=== PATIENT | female | born 1995 | race Caucasian/White ===

== ENCOUNTER 2019-04-29 16:01 | Emergency (ER) | payer MEDICAID, OTHER ==
--- NOTE | 2019-04-29 16:06 | NUR ---
PT CAME INTO THE ED C/O A "BUG BITE" WHICH HAS GOTTEN BIGGER FOR THE PAST 2 DAYS. PT AAOX4, VSS, BREATHING EVEN AND UNLABORED W/ NAD. AWAITING FOR MD VARGAS
[2019-04-29 16:26] VITALS: BP 128/84
--- NOTE | 2019-04-29 16:26 | NUR ---
Patient discharged to home in stable condition. Written and verbal after care instructions given. Patient verbalizes understanding of instruction.
== END 2019-04-29 16:27 | disposition home or self-care (01) ==
LOC: ER 16:01
DX: S80.861A Insect bite (nonvenomous), right lower leg, initial encounter (principal); L08.9 Local infection of the skin and subcutaneous tissue, unspecified; W57.XXXA Bitten or stung by nonvenomous insect and other nonvenomous arthropods, initial encounter; Y93.89 Activity, other specified; Y92.89 Other specified places as the place of occurrence of the external cause; Y99.8 Other external cause status

== ENCOUNTER 2019-08-22 15:41 | Emergency (ER) | payer OTHER ==
[~2019-08-22] VITALS: Ht 172.7 cm; Wt 59.0 kg
[2019-08-22 16:06] LABS: BILIRUBIN,URINE Negative (NEGATIVE); COLOR,URINE Light yellow (YELLOW); KETONES,URINE Negative (NEGATIVE); LEUKOCYTE ESTERASE ,URINE Large (NEGATIVE); NITRITE, URINE Negative (NEGATIVE); PROTEIN,URINE Negative (NEGATIVE); UGLUCOSE Negative (NEGATIVE); UROBILINOGEN,URINE 0.2 EU/dL (0.2)
[2019-08-22 16:08] LABS: APPEARANCE,URINE SLIGHTLY CLOUDY (CLEAR)
[2019-08-22 16:09] LABS: BACTERIA,URINE Few /HPF (None Seen); BLOOD, URINE TRACE Ery/uL (NEGATIVE); SQUAMOUS EPITHELIAL CELL,UR Many /HPF (None Seen); WBC,URINE 51-80 /HPF (0-3)
[2019-08-22 16:36] VITALS: BP 143/88
--- NOTE | 2019-08-22 16:36 | NUR ---
Patient discharged to home in stable condition. Written and verbal after care instructions given. Patient verbalizes understanding of instruction.
== END 2019-08-22 16:36 | disposition home or self-care (01) ==
LOC: ER 15:45
DX: N39.0 Urinary tract infection, site not specified (principal)
CPT/HCPCS: 81000-TC; 84703-TC; 87086-TC; 87186-TC

== ENCOUNTER 2021-11-23 14:55 | Emergency (ER) | payer OTHER ==
[~2021-11-23] VITALS: Ht 172.7 cm; Wt 79.4 kg
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
--- NOTE | 2021-11-23 15:05 | NUR ---
SEEN AND EXAMINED BY .
--- NOTE | 2021-11-23 15:19 | NUR ---
POWDER OPERATOR AT BEDSIDE FOR XRAY.
[2021-11-23] MEDS ORDERED: HYDROCODONE/APAP 5/325MG TABLET ONE (15:27)
[2021-11-23] MEDS ORDERED: TDAP [DIPH/PERTUSSIS/TET] 0.5 ML VIAL IM ONE ×2 (15:28→15:30)
[2021-11-23] MEDS ORDERED: HYDROCODONE/APAP 5/325MG TABLET PO ONE (15:30)
[2021-11-23] MEDS ORDERED: LIDOCAINE HCL/PF 1% 30 ML VIAL TP ONE (15:30)
--- NOTE | 2021-11-23 16:05 | NUR ---
IV LINE ESTABLISHED BLOOD DRAWN AND SENT TO LAB.
--- NOTE | 2021-11-23 16:17 | NUR ---
CALLED JEET AT [facility] AND WAS NOTIFIED OF PT STATUS. WILL FAX PT'S CLINICALS TO [phone]
[2021-11-23] MEDS ORDERED: IV NS 0.9% 1,000 ML BAG IV ONE (16:30)
[2021-11-23] MEDS ORDERED: CEFAZOLIN 1 GM in IV D5W 50 ML IV ONE (16:30)
[2021-11-23] MEDS ORDERED: ONDANSETRON HCL/PF 4 MG/2 ML VIAL ONE (16:34)
[2021-11-23] MEDS ORDERED: HYDROMORPHONE 1 MG/1 ML DISP.SYRIN ONE (16:35)
[2021-11-23] MEDS ORDERED: HYDROMORPHONE 1 MG/1 ML DISP.SYRIN IV ONE (17:00)
[2021-11-23] MEDS ORDERED: ONDANSETRON HCL/PF 4 MG/2 ML VIAL IV ONE (17:00)
--- NOTE | 2021-11-23 17:01 | NUR ---
COVID SPECIMEN COLLECTED AND SENT TO LAB.
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
--- NOTE | 2021-11-23 17:43 | NUR ---
[facility] CALLED [facility] PT ACCEPTANCE INFO UNDER THE CARE OF GUEST NUMBER FOR REPORT [phone] (PRESS 1)
--- NOTE | 2021-11-23 17:47 | NUR ---
CALLED [facility] AND SET UP S TRANSPORT ETA [id number]
--- NOTE | 2021-11-23 18:03 | NUR ---
REPORT GIVEN TO EDMUND MCBRIDE OF [facility] WITH [facility].
[2021-11-23 18:05] VITALS: BP 125/68
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
== END 2021-11-23 18:37 | disposition short-term general hospital (02) ==
LOC: ER 15:22
DX: S82.52XB Displaced fracture of medial malleolus of left tibia, initial encounter for open fracture type I or II (principal); V49.69XA Unspecified car occupant injured in collision with other motor vehicles in traffic accident, initial encounter; Y92.414 Local residential or business street as the place of occurrence of the external cause; R51.9 Headache, unspecified; Z20.822 Contact with and (suspected) exposure to COVID-19; R07.89 Other chest pain
CPT/HCPCS: 29515; 36415; 71045; 73610; 84702; 87426; 90471; 90715; 96365; 96375; 99285; A6403; C9803; J0690 ×2; J1170; J2405; J3490; J7030; J7060 ×2